=== PATIENT | male | born 1935 | race Caucasian/White ===

== ENCOUNTER 2017-08-27 14:30 | Observation (INO) | payer OTHER ==
[~2017-08-27] VITALS: Ht 170.2 cm; Wt 60.0 kg
[2017-08-27 14:43] VITALS: BP 180/90; PULSE 69; RESP 22; TEMP 97.6
[2017-08-27 14:48] VITALS: TEMP 97.4; O2SAT 99
[2017-08-27] MEDS ORDERED: COMB0.2S EACH EYE (15:01)
[2017-08-27] MEDS ORDERED: ASPI81CH6 CHEW (15:01)
[2017-08-27] MEDS ORDERED: LATA0.002 EACH EYE (15:01)
[2017-08-27] MEDS ORDERED: PRAV40TA2 PO (15:01)
[2017-08-27] MEDS ORDERED: NEUR300C PO (15:01)
[2017-08-27] MEDS ORDERED: ENAL5TAB PO (15:01)
--- NOTE | 2017-08-27 15:13 | PD ---
HPI Chief Complaint: Fall Time Seen by Provider: 14:35 Travel History International Travel<30 days: No Contact w/Intl Traveler<30days: No Traveled to known affect area: No History of Present Illness HPI 81-year-old male states he remembers going for a walk and then riding in the ambulance. The ambulance team states that he was found by neighbors of the ground. When they got to him he was unconscious. He started coming to in the ambulance. He states he has pain to his right knee from an abrasion and he has a bump to his head but denies other complaints. He states sometimes his legs get weak and he will fall so he maybe had that happen but he is not sure. He denies recurrent syncope, chest pain, shortness of breath or other concurrent complaints at this time. Patient history is limited given that he cannot recall event PFSH Past Medical History Medical History: Denies Significant Hx Diminished Hearing: No Past Surgical History Surgical History: No Previous Surgery Social History Alcohol Use: No Tobacco Use: No Substance Use: No Allergies-Medications (Allergen,Severity, Reaction): Coded Allergies: atorvastatin (Verified Adverse Reaction, Unknown, MUSCLE ACHES, 08/27/17) lovastatin (Verified Adverse Reaction, Unknown, CONSTIPATION, 08/27/17) simvastatin (Verified Adverse Reaction, Unknown, MUSCLE ACHES, 08/27/17) tamsulosin (Verified Adverse Reaction, Unknown, DIZZINESS, 08/27/17) Reported Meds & Prescriptions Reported Meds & Active Scripts Active Reported Aspirin Low Dose (Aspirin) 81 Mg Chew 81 Mg CHEW DAILY Latanoprost Opth Drops (Latanoprost) 0.005% Drops 1 Drop EACH EYE HS Refrigerate until opened. Combigan Opth Drops (Brimonidine-Timolol Opth Drops) 0.2-0.5% Soln 1 Drop EACH EYE Q12HR Neurontin (Gabapentin) 300 Mg Cap 300 Mg PO TID Pravastatin 40 Mg Tab 40 Mg PO DAILY Enalapril (Enalapril Maleate) 5 Mg Tab 5 Mg PO DAILY Review of Systems Except as stated in HPI: all other systems reviewed are Neg Physical Exam Narrative GENERAL: Well-nourished, well-developed patient. SKIN: Warm and dry. Abrasion noted to right knee HEAD: Normocephalic and supraorbital hematoma with abrasion noted on left EYES: No injection or drainage. ENT: No nasal drainage noted. NECK: Supple, trachea midline. C-collar in place CARDIOVASCULAR: Regular rate and rhythm RESPIRATORY: Breath sounds equal bilaterally at apices. No accessory muscle use. GASTROINTESTINAL: Abdomen soft, non-tender, nondistended. EXTREMITIES: No edema. No pain with palpation of main joints including right knee, neurovascularly intact, no lacerations over, compartments soft. BACK: Nontender without obvious deformity with logroll in midline across entire spine. NEUROLOGICAL: Awake and alert. Motor and sensory grossly within normal limits. Normal speech. Data Data Last Documented VS Vital Signs Date Time Temp Pulse Resp B/P (MAP) Pulse Ox O2 Delivery O2 Flow Rate FiO2 08/27/17 14:48 97.4 99 Room Air 08/27/17 14:48 2.00 08/27/17 14:43 69 22 180/90 (120) Orders Orders Electrocardiogram (08/27/17 14:42) Basic Metabolic Panel (Bmp) (08/27/17 14:42) Complete Blood Count With Diff (08/27/17 14:42) Magnesium (Mg) (08/27/17 14:42) Ckmb (Isoenzyme) Profile (08/27/17 14:42) Troponin I (08/27/17 14:42) Act Partial Throm Time (Ptt) (08/27/17 14:42) Prothrombin Time / Inr (Pt) (08/27/17 14:42) Chest, Single Ap (08/27/17 14:42) Ct Brain W/O Iv Contrast(Rout) (08/27/17 14:42) Ct Cerv Spine W/O Contrast (08/27/17 14:42) Ecg Monitoring (08/27/17 14:42) Iv Access Insert/Monitor (08/27/17 14:42) Oximetry (08/27/17 14:42) Ct Facial Bones W/O Iv Cont (08/27/17 ) CKMB (08/27/17 15:00) CKMB% (08/27/17 15:00) Alcohol (Ethanol) (08/27/17 15:58) Admit Order (Ed Use Only) (08/27/17 17:16) Labs Laboratory Tests Test 08/27/17 15:00 White Blood Count 7.1 TH/MM3 Red Blood Count 3.53 MIL/MM3 Hemoglobin 12.3 GM/DL Hematocrit 35.6 % Mean Corpuscular Volume 100.8 FL Mean Corpuscular Hemoglobin 34.7 PG Mean Corpuscular Hemoglobin Concent 34.4 % Red Cell Distribution Width 13.5 % Platelet Count 298 TH/MM3 Mean Platelet Volume 7.9 FL Neutrophils (%) (Auto) 66.9 % Lymphocytes (%) (Auto) 17.5 % Monocytes (%) (Auto) 9.1 % Eosinophils (%) (Auto) 5.6 % Basophils (%) (Auto) 0.9 % Neutrophils # (Auto) 4.8 TH/MM3 Lymphocytes # (Auto) 1.2 TH/MM3 Monocytes # (Auto) 0.6 TH/MM3 Eosinophils # (Auto) 0.4 TH/MM3 Basophils # (Auto) 0.1 TH/MM3 CBC Comment DIFF FINAL Differential Comment Prothrombin Time 10.1 SEC Prothromb Time International Ratio 1.0 RATIO Activated Partial Thromboplast Time 23.1 SEC Blood Urea Nitrogen 18 MG/DL Creatinine 1.08 MG/DL Random Glucose 99 MG/DL Calcium Level 9.1 MG/DL Magnesium Level 2.3 MG/DL Sodium Level 140 MEQ/L Potassium Level 4.1 MEQ/L Chloride Level 106 MEQ/L Carbon Dioxide Level 28.9 MEQ/L Anion Gap 5 MEQ/L Estimat Glomerular Filtration Rate 65 ML/MIN Total Creatine Kinase 122 U/L Creatine Kinase MB 2.0 NG/ML Troponin I LESS THAN 0.02 NG/ML Ethyl Alcohol Level LESS THAN 3 MG/DL MDM Medical Decision Making Medical Screen Exam Complete: Yes Emergency Medical Condition: Yes Medical Record Reviewed: Yes (past history confirmed) Interpretation(s) CBC & BMP Diagram 08/27/17 15:00 Calcium Level 9.1, Magnesium Level 2.3 Last [address] [id number]/27/171441 Signed Impressions: Service Date/Time: Sunday, August 27, 2017 15:03 - CONCLUSION: Preorbital soft tissue swelling on the left. Kentrell Duran MD Chest X-Ray [id number] Signed Impressions: Service Date/Time: Sunday, August 27, 2017 15:21 - CONCLUSION: No acute cardiopulmonary disease. Kentrell Duran MD Cervical Spine CT [id number] Signed Impressions: Service Date/Time: Bhupinder, August 27, 2017 15:03 - CONCLUSION: Slight neural foramina compromise left C3-C4 right C5-C6. Kentrell Duran MD Maxillofacial CT 08/27/17 0000 Signed Impressions: Service Date/Time: Sunday, August 27, 2017 15:03 - CONCLUSION: No definite fracture is seen for technique. Kentrell Duran MD Differential Diagnosis Intracranial bleed, fracture, syncope Narrative Course will check blood work given prolonged syncope at age and check trauma imaging and reevaluate ed workup no acute, patient agrees to observation for syncope workup Physician Communication Physician Communication dr amor agrees to admit Diagnosis Primary Impression: Syncope Qualified Codes: R55 - Syncope and collapse Admitting Information Admitting Physician Requests: Observation Diana Martinez MD Aug 27, 2017 15:13
[2017-08-27 15:23] LABS: AUTOMATED NEUTROPHIL # 4.8 TH/MM3 (1.8-7.7); BASOPHIL # 0.1 TH/MM3 (0-0.2); BASOPHIL % 0.9 % (0.0-2.0); EOSINOPHIL # 0.4 TH/MM3 (0-0.4); EOSINOPHIL % 5.6 % (0.0-4.0); HEMATOCRIT 35.6 % (39.0-51.0); HEMOGLOBIN 12.3 GM/DL (13.0-17.0); LYMPH % 17.5 % (9.0-44.0); LYMPHOCYTE # 1.2 TH/MM3 (1.0-4.8); MEAN CELL VOLUME 100.8 FL (80.0-100.0); MEAN CORPUSCULAR HEMOGLOBIN 34.7 PG (27.0-34.0); MEAN CORPUSCULAR HGB CONC 34.4 % (32.0-36.0); MEAN PLATELET VOLUME 7.9 FL (7.0-11.0); MONO % 9.1 % (0.0-8.0); MONOCYTE # 0.6 TH/MM3 (0-0.9); NEUT % 66.9 % (16.0-70.0); PLATELET COUNT 298 TH/MM3 (150-450); RED BLOOD COUNT 3.53 MIL/MM3 (4.50-5.90); RED CELL DISTRIBUTION WIDTH 13.5 % (11.6-17.2); WHITE BLOOD COUNT 7.1 TH/MM3 (4.0-11.0)
--- NOTE | 2017-08-27 15:24 | RADRPT ---
EXAM DATE/TIME: 08/27/2017 15:03 [facility] COMPARISON: No previous studies available for comparison. INDICATIONS : Trauma, left sided facial abrasions. RADIATION DOSE: 36.72 CTDIvol (mGy) MEDICAL HISTORY : None SURGICAL HISTORY : None. ENCOUNTER: Initial ACUITY: 1 day PAIN SCALE: 3/10 LOCATION: Bilateral head TECHNIQUE: Multiple contiguous axial images were obtained of the head. Using automated exposure control and adj ustment of the mA and/or kV according to patient size, radiation dose was kept as low as reasonably a chievable to obtain optimal diagnostic quality images. DICOM format image data is available electro nically for review and comparison. FINDINGS: There is no evidence for intracranial hemorrhage, mass effect, mass lesions, or edema. The visualize d bony structures appear intact. Moderate degree of brain atrophy is seen. Moderate periventricular white matter changes are seen nonspecific mostly consistent with chronic small vessel ischemic change s. There are no signs of acute infarction for technique. There is soft tissue swelling in the presep rosa maria and supraorbital area on the left side without post septal extension. There is mild mucoperiostea l thickening of the eithmoid air cells. CONCLUSION: Preorbital soft tissue swelling on the left. Kentrell Duran MD on August 27, 2017 at 15:21 Board Certified Radiologist. This report was verified electronically.
--- NOTE | 2017-08-27 15:35 | RADRPT ---
EXAM DATE/TIME: 08/27/2017 15:03 [facility] COMPARISON: No previous studies available for comparison. INDICATIONS : Trauma, left sided facial abrasions. RADIATION DOSE: 18.40 CTDIvol (mGy) MEDICAL HISTORY : None SURGICAL HISTORY : None. ENCOUNTER: Initial ACUITY: 1 day PAIN SCALE: 5/10 LOCATION: Bilateral neck TECHNIQUE: Volumetric scanning of the cervical spine was performed. Multiplanar reconstructions in the sagittal, coronal and oblique axial planes were performed. Using automated exposure control and adjustment o f the mA and/or kV according to patient size, radiation dose was kept as low as reasonably achievable to obtain optimal diagnostic quality images. DICOM format image data is available electronically f or review and comparison. FINDINGS: No definite fracture is seen for technique. C2-C3: There is no evidence for any significant compromise to the thecal sac, or the exiting nerve roots. N o appreciable thecal sac stenosis is seen. The neural foramina and lateral recess appear patent bila terally. C3-C4: Slight degenerative changes are seen within the disc space and facets. Slight bilateral lateral reces s compromise is seen due to hypertrophic changes and bulging disc. There is slight neural foramina co mpromise on the left due to asymmetrical bulging disc and hypertrophic changes. No appreciable thecal sac stenosis is seen. C4-C5: Slight degenerative changes are seen within the disc space and facets. Slight bulging disc and hypert rophic changes are seen with indentation on the thecal sac and no significant compromise to the theca l sac or the exiting nerve roots. C5-C6: Moderate degenerative changes are seen within the disc space and facets. Slight bilateral lateral rec ess compromise is seen due to hypertrophic changes and bulging disc. There is slight neural foramina compromise on the right due to asymmetrical bulging disc and hypertrophic changes. No appreciable the shayy sac stenosis is seen. C6-C7: Slight degenerative changes are seen within the disc space and facets. Slight bulging disc and hypert rophic changes are seen with indentation on the thecal sac and no significant compromise to the theca l sac or the exiting nerve roots. C7-T1: There is no evidence for any significant compromise to the thecal sac, or the exiting nerve roots. N o appreciable thecal sac stenosis is seen. The neural foramina and lateral recess appear patent bila terally. CONCLUSION: Slight neural foramina compromise left C3-C4 right C5-C6. Kentrell Duran MD on August 27, 2017 at 15:28 Board Certified Radiologist. This report was verified electronically.
[2017-08-27 15:37] LABS: PROTHROMBIN TIME - PATIENT 10.1 SEC (9.8-11.6)
--- NOTE | 2017-08-27 15:38 | RADRPT ---
EXAM DATE/TIME: 08/27/2017 15:03 [facility] COMPARISON: No previous studies available for comparison. INDICATIONS : Trauma, left sided facial abrasions. RADIATION DOSE: 57.78 CTDIvol (mGy) MEDICAL HISTORY : None SURGICAL HISTORY : None. ENCOUNTER: Initial ACUITY: 1 day PAIN SCORE: 4/10 LOCATION: Left facial TECHNIQUE: Volumetric scanning of the facial bones was performed. Using automated exposure control and adjustme nt of the mA and/or kV according to patient size, radiation dose was kept as low as reasonably achiev able to obtain optimal diagnostic quality images. DICOM format image data is available electronicall y for review and comparison. FINDINGS: No definite fractures, or dislocations are identified. No definite lytic or sclerotic lesion is seen . There is pre-septal soft tissue swelling on the left side with extension into the supraorbital area and mild mucoperiosteal thickening within multiple sinuses. CONCLUSION: No definite fracture is seen for technique. Kentrell Duran MD on August 27, 2017 at 15:34 Board Certified Radiologist. This report was verified electronically.
[2017-08-27 15:42] LABS: BICARBONATE 28.9 MEQ/L (21.0-32.0); BLOOD UREA NITROGEN 18 MG/DL (7-18); CALCIUM 9.1 MG/DL (8.5-10.1); CHLORIDE 106 MEQ/L (98-107); CREATININE 1.08 MG/DL (0.60-1.30); GLOMERULAR FILTRATION RATE 65 ML/MIN (>89); GLUCOSE,RANDOM 99 MG/DL (74-106); MAGNESIUM 2.3 MG/DL (1.5-2.5); SODIUM (NA) 140 MEQ/L (136-145)
[2017-08-27 15:45] LABS: TROPONIN I LESS THAN 0.02 NG/ML (0.02-0.05)
--- NOTE | 2017-08-27 15:58 | RADRPT ---
EXAM DATE/TIME: 08/27/2017 15:21 [facility] COMPARISON: No previous studies available for comparison. INDICATIONS : Heart Palpitations MEDICAL HISTORY : SURGICAL HISTORY : None. ENCOUNTER: Initial ACUITY: 1 day PAIN SCORE: 0/10 LOCATION: Bilateral chest FINDINGS: The lungs are clear without infiltrate, nodule, or mass. There is no appreciable pleural effusion fo r technique. Heart and mediastinum are unremarkable. There are atherosclerotic calcifications of the aorta due to chronic atherosclerotic disease. CONCLUSION: No acute cardiopulmonary disease. Kentrell Duran MD on August 27, 2017 at 15:56 Board Certified Radiologist. This report was verified electronically.
[2017-08-27] MEDS ORDERED: NALOXONE HCL 0.4 MG/ML AMP IV PUSH PRN (17:30)
[2017-08-27] MEDS ORDERED: SODIUM CHLORIDE 0.9% FLUSH 10 ML FLUSH IV FLUSH PRN (17:30)
--- NOTE | 2017-08-27 17:48 | HHI.HP ---
HPI Service [facility] Hospitalists Primary Care Physician Kassandra Dawson M.D. Admission Diagnosis syncope Diagnoses: Chief Complaint: "I Passed out" Travel History International Travel<30 Days: No Contact w/Intl Traveler <30 Da: No Traveled to Known Affected Are: No History of Present Illness This is an 80-year-old male with past medical history significant for prostate cancer status post radiation therapy, hypertension, hyperlipidemia, peripheral neuropathy who presented to [facility] after he passed out area the patient states that he usually goes out walking around his house. Today when he went out at some point he had to kneel down because he had something in his shoes and when he stood up and then he lost his balance tripped and fell and then pass out. The patient remembers waking up when the paramedics were next to him. He denies chest pain, short of breath, denies dysuria, abdominal pain, denies bowel or urine incontinence. Patient also denies fevers, chills, cough and states that prior to these events he was in his usual state of health. Review of Systems As per history of present illness, other systems reviewed by me and negative. Past Family Social History Past Medical History 1. Arthritis. 2. Difficulty with erections. 3. Glaucoma. 4. Hyperlipidemia. 5. Hypertension. 6. Peripheral neuropathy. 7. Prostate cancer in 2006, status post XRT. Past Surgical History 1. Bone marrow biopsy - 12/2012 2. Colonoscopy in 2013- positive for polyps. 3. Biopsy in 2006 - prostate Reported Medications Reported Meds & Active Scripts Active Reported Aspirin Low Dose (Aspirin) 81 Mg Chew 81 Mg CHEW DAILY Latanoprost Opth Drops (Latanoprost) 0.005% Drops 1 Drop EACH EYE HS Refrigerate until opened. Combigan Opth Drops (Brimonidine-Timolol Opth Drops) 0.2-0.5% Soln 1 Drop EACH EYE Q12HR Neurontin (Gabapentin) 300 Mg Cap 300 Mg PO TID Pravastatin 40 Mg Tab 40 Mg PO DAILY Enalapril (Enalapril Maleate) 5 Mg Tab 5 Mg PO DAILY Allergies: Coded Allergies: atorvastatin (Verified Adverse Reaction, Unknown, MUSCLE ACHES, 08/27/17) lovastatin (Verified Adverse Reaction, Unknown, CONSTIPATION, 08/27/17) simvastatin (Verified Adverse Reaction, Unknown, MUSCLE ACHES, 08/27/17) tamsulosin (Verified Adverse Reaction, Unknown, DIZZINESS, 08/27/17) Active Ordered Medications Current Medications Medications (Trade) Dose Ordered Sig/Andrew Route Start Time Stop Time Status Last Admin (NS Flush) 2 ml UNSCH PRN IV FLUSH 08/27/17 17:30 (NS Flush) 2 ml BID IV FLUSH 08/27/17 21:00 (Narcan Inj) 0.4 mg UNSCH PRN IV PUSH 08/27/17 17:30 Family History Mr. Chaidez has 2 brothers and both are and had prostate cancer. All male relatives in his family have had prostate cancer. Social History The patient is a former smoker but had smoked one pack per day for 50 years. Denies alcohol or illicit drug use. Physical Exam Vital Signs Vital Signs Date Time Temp Pulse Resp B/P (MAP) Pulse Ox O2 Delivery O2 Flow Rate FiO2 08/27/17 14:48 97.4 99 Room Air 08/27/17 14:48 97 Nasal Cannula 2.00 08/27/17 14:43 97.6 69 22 180/90 (120) Physical Exam GENERAL: This is a well-nourished, well-developed patient, in no apparent distress. SKIN: No rashes, ecchymoses or lesions. HEAD: Atraumatic. Normocephalic. No temporal or scalp tendCool and dry. Abrasion on right knee and black and blue swollen eye on left eye.erness. EYES: Pupils equal round and reactive. Extraocular motions intact. No scleral icterus. No injection or drainage. ENT: Nose without bleeding, purulent drainage or septal hematoma. Throat without erythema, tonsillar hypertrophy or exudate. Uvula midline. Airway patent. NECK: Trachea midline. No JVD or lymphadenopathy. Supple, nontender, no meningeal signs. CARDIOVASCULAR: Regular rate and rhythm without murmurs, gallops, or rubs. RESPIRATORY: Clear to auscultation. Breath sounds equal bilaterally. No wheezes , rales, or rhonchi. GASTROINTESTINAL: Abdomen soft, non-tender, nondistended. No hepato-splenomegaly , or palpable masses. No guarding. MUSCULOSKELETAL: Extremities without clubbing, cyanosis, or edema. No joint tenderness, effusion, or edema noted. No calf tenderness. Negative Homans sign bilaterally. NEUROLOGICAL: Awake and alert. Cranial nerves II through XII intact. Motor and sensory grossly within normal limits. Five out of 5 muscle strength in all muscle groups. Normal speech. Laboratory Laboratory Tests Test 08/27/17 15:00 White Blood Count 7.1 Red Blood Count 3.53 Hemoglobin 12.3 Hematocrit 35.6 Mean Corpuscular Volume 100.8 Mean Corpuscular Hemoglobin 34.7 Mean Corpuscular Hemoglobin Concent 34.4 Red Cell Distribution Width 13.5 Platelet Count 298 Mean Platelet Volume 7.9 Neutrophils (%) (Auto) 66.9 Lymphocytes (%) (Auto) 17.5 Monocytes (%) (Auto) 9.1 Eosinophils (%) (Auto) 5.6 Basophils (%) (Auto) 0.9 Neutrophils # (Auto) 4.8 Lymphocytes # (Auto) 1.2 Monocytes # (Auto) 0.6 Eosinophils # (Auto) 0.4 Basophils # (Auto) 0.1 CBC Comment DIFF FINAL Differential Comment Prothrombin Time 10.1 Prothromb Time International Ratio 1.0 Activated Partial Thromboplast Time 23.1 Blood Urea Nitrogen 18 Creatinine 1.08 Random Glucose 99 Calcium Level 9.1 Magnesium Level 2.3 Sodium Level 140 Potassium Level 4.1 Chloride Level 106 Carbon Dioxide Level 28.9 Anion Gap 5 Estimat Glomerular Filtration Rate 65 Total Creatine Kinase 122 Creatine Kinase MB 2.0 Troponin I LESS THAN 0.02 Ethyl Alcohol Level LESS THAN 3 Result Diagram: 08/27/17 1500 08/27/17 1500 Imaging Last Impressions Head CT 08/27/171441 Signed Impressions: Service Date/Time: Sunday, August 27, 2017 15:03 - CONCLUSION: Preorbital soft tissue swelling on the left. Kentrell Duran MD Chest X-Ray 08/27/171441 Signed Impressions: Service Date/Time: Sunday, August 27, 2017 15:21 - CONCLUSION: No acute cardiopulmonary disease. Kentrell Duran MD Cervical Spine CT [id number]/27/171441 Signed Impressions: Service Date/Time: Sunday, August 27, 2017 15:03 - CONCLUSION: Slight neural foramina compromise left C3-C4 right C5-C6. Kentrell Duran MD Maxillofacial CT 08/27/17 0000 Signed Impressions: Service Date/Time: Sunday, August 27, 2017 15:03 - CONCLUSION: No definite fracture is seen for technique. Kentrell Duran MD Images reviewed by me. Caprini VTE Risk Assessment Caprini VTE Risk Assessment: No/Low Risk (score <= 1) Caprini Risk Assessment Model Point Value = 1 Point Value = 2 Point Value = 3 Point Value = 5 Age 41-60 Minor surgery BMI > 25 kg/m2 Swollen legs Varicose veins or History of unexplained or recurrent spontaneous Oral contraceptives or hormone replacement Sepsis (< 1 month) Serious lung disease, including pneumonia (< 1 month) Abnormal pulmonary function Acute myocardial infarction Congestive heart failure (< 1 month) History of inflammatory bowel disease Medical patient at bed rest Age 61-74 Arthroscopic surgery Major open surgery (> 45 min) Laparoscopic surgery (> 45 min) Malignancy Confined to bed (> 72 hours) Immobilizing plaster cast Central venous access Age >= 75 History of VTE Family history of VTE Factor V Leiden Prothrombin [id number] Lupus anticoagulant Anticardiolipin antibodies Elevated serum homocysteine Heparin-induced thrombocytopenia Other congenital or acquired thrombophilia Stroke (< 1 month) Elective arthroplasty Hip, pelvis, or leg fracture Acute spinal cord injury (< 1 month) Prophylaxis Regimen Total Risk Factor Score Risk Level Prophylaxis Regimen 0-1 Low Early ambulation 2 Moderate Order ONE of the following: *Sequential Compression Device (SCD) *Heparin 5000 units SQ BID 3-4 Higher Order ONE of the following medications: *Heparin 5000 units SQ TID *Enoxaparin/Lovenox 40 mg SQ daily (WT < 150 kg, CrCl > 30 mL/min) *Enoxaparin/Lovenox 30 mg SQ daily (WT < 150 kg, CrCl > 10-29 mL/min) *Enoxaparin/Lovenox 30 mg SQ BID (WT < 150 kg, CrCl > 30 mL/min) AND/OR *Sequential Compression Device (SCD) 5 or more Highest Order ONE of the following medications: *Heparin 5000 units SQ TID (Preferred with Epidurals) *Enoxaparin/Lovenox 40 mg SQ daily (WT < 150 kg, CrCl > 30 mL/min) *Enoxaparin/Lovenox 30 mg SQ daily (WT < 150 kg, CrCl > 10-29 mL/min) *Enoxaparin/Lovenox 30 mg SQ BID (WT < 150 kg, CrCl > 30 mL/min) AND *Sequential Compression Device (SCD) Assessment and Plan Problem List: (1) Syncope ICD Code: R55 - Syncope and collapse Status: Acute Plan: EKG reviewed by me showed sinus bradycardia with occasional supraventricular premature complexes, no ST-T changes suggestive of active ischemia. Chest x-ray reviewed by me does not show any acute disease. Likely the patient lost balance and fell and the syncope is a result of head trauma. Place patient in a patient in outpatient observation. Monitor on telemetry, check 2-D echo, check carotid Dopplers, check orthostatic vital signs Trend cardiac enzymes, first set negative. consult PT (2) Uncontrolled hypertension ICD Code: I10 - Essential (primary) hypertension Status: Acute Plan: Patient has a systolic blood pressure in the 180s. Continue home antihypertensive medications. The patient on enalapril 5 mg by mouth daily. Will Rx Vasotec IV PRN (3) Hyperlipidemia ICD Code: E78.5 - Hyperlipidemia, unspecified Status: Chronic Plan: Check fasting lipid profile. Continue statin. (4) Macrocytic anemia ICD Code: D53.9 - Nutritional anemia, unspecified Plan: Check iron studies, B12 and folate. (5) Glaucoma ICD Code: H40.9 - Unspecified glaucoma Status: Chronic Plan: Seems to be stable. Continue Combigan ophthalmic drops and latanoprost ophthalmic drops. (6) Peripheral neuropathy ICD Code: G62.9 - Polyneuropathy, unspecified Status: Chronic Plan: Continue gabapentin. Assessment and Plan DVT prophylaxis: SCDs. Code Status Full code Discussed Condition With Patient Problem Qualifiers (1) Syncope: Qualified Codes: R55 - Syncope and collapse (2) Hyperlipidemia: Qualified Codes: E78.5 - Hyperlipidemia, unspecified (3) Glaucoma: Qualified Codes: H40.9 - Unspecified glaucoma (4) Peripheral neuropathy: Qualified Codes: G62.9 - Polyneuropathy, unspecified Akhil Tripp MD Aug 27, 2017 17:48
[2017-08-27 18:05] VITALS: BP 178/97; PULSE 84; RESP 18; O2SAT 97
[2017-08-27 18:07] VITALS: BP 172/79
--- NOTE | 2017-08-27 18:07 | RADRPT ---
EXAM DATE/TIME: 08/27/2017 17:33 [facility] COMPARISON: No previous studies available for comparison. INDICATIONS : Syncope. MEDICAL HISTORY : None. SURGICAL HISTORY : None. ENCOUNTER: Initial ACUITY: 1 day PAIN SCORE: 0/10 LOCATION: Bilateral neck PEAK SYSTOLIC VELOCITIES (cm/sec): ICA/CCA RATIO: Right: 1.4 Left: 1.2 ICA: Right: 91.9 Left: 64.6 CCA: Right: 65.8 Left: 55.9 ECA: Right: 58.1 Left: 58.1 VERTEBRAL: Right: 66.4 antegrade Left: 43.8 antegrade Elevated flow velocities and ICA/CCA ratios have been found to correlate with increased degrees of vessel stenosis, calculated as percentage of diameter relative to a normal segment of distal ICA/CCA FINDINGS: Antegrade flow is seen in both vertebral arteries. There is mild atherosclerotic plaquing at the orig in of both ICAs without any significant stenosis. CONCLUSION: No evidence for hemodynamically significant stenosis. Kentrell Duran MD on August 27, 2017 at 18:05 Board Certified Radiologist. This report was verified electronically.
[2017-08-27] MEDS: PRAVASTATIN SOD 40 MG TAB PO SCH (18:15)
[2017-08-27] MEDS: GABAPENTIN 300 MG CAP PO SCH (18:16)
[2017-08-27] MEDS: ENALAPRIL MALEATE 5 MG TAB PO SCH (18:16)
[2017-08-27] MEDS ORDERED: ENALAPRILAT 1.25 MG/ML VIAL IV PUSH PRN (18:30)
--- NOTE | 2017-08-27 19:34 | EKG ---
Date Performed: 08/27/2017 Time Performed: 14:56:38 PTAGE: 81 years EKG: SINUS BRADYCARDIA WITH OCCASIONAL SUPRAVENTRICULAR PREMATURE COMPLEXES BORDERLINE ECG NO PREVIOUS TRACING DOCTOR: Kevin Valdez Interpretating Date/Time 08/27/2017 19:32:39
[2017-08-27] MEDS ORDERED: LATANOPROST 0.005% OPHT SOLN 2.5 ML BTL EACH EYE SCH (21:00)
[2017-08-27] MEDS ORDERED: PT OWN (Brimonidine-Timolol Opth Drops (Combigan Opth Drops) EACH EYE SCH (21:00)
[2017-08-27] MEDS: SODIUM CHLORIDE 0.9% FLUSH 10 ML FLUSH IV FLUSH SCH (21:43)
[2017-08-27 21:56] LABS: IRON (FE) 90 MCG/DL (65-175); TOTAL IRON BINDING CAPACITY 409 MCG/DL (250-450)
--- NOTE | 2017-08-27 22:04 | EKG ---
Date Performed: 08/27/2017 Time Performed: 21:09:05 PTAGE: 81 years EKG: Sinus rhythm WITH SINUS ARRHYTHMIA NORMAL ECG Compared to prior electrocardiogram, rate has increased PREVIOUS TRACING : 08/27/2017 14.56 DOCTOR: Kevin Valdez Interpretating Date/Time 08/27/2017 22:02:25
[2017-08-27] MEDS ORDERED: ACETAMINOPHEN 325 MG TAB PO PRN (22:15)
[2017-08-27 22:21] LABS: FERRITIN 43 NG/ML (26-388); TROPONIN I 0.02 NG/ML (0.02-0.05)
[2017-08-27 22:25] LABS: FOLATE GREATER THAN 20.0 NG/ML (3.1-17.5)
[2017-08-27 23:03] VITALS: BP_SYST 116; BP_SYST 141; BP_DIAS 69; BP_DIAS 81; PULSE 64; RESP 18; TEMP 97.8; O2SAT 94
[2017-08-28] VITALS: BP 128/78; PULSE 68; RESP 18; TEMP 97.8; O2SAT 96
[2017-08-28 03:22] VITALS: BP 107/59; PULSE 69; RESP 18; TEMP 98.7; O2SAT 94
[2017-08-28 04:16] LABS: AUTOMATED NEUTROPHIL # 7.5 TH/MM3 (1.8-7.7); BASOPHIL # 0.1 TH/MM3 (0-0.2); BASOPHIL % 0.7 % (0.0-2.0); EOSINOPHIL # 0.2 TH/MM3 (0-0.4); EOSINOPHIL % 2.5 % (0.0-4.0); HEMATOCRIT 35.4 % (39.0-51.0); HEMOGLOBIN 11.9 GM/DL (13.0-17.0); LYMPH % 11.3 % (9.0-44.0); LYMPHOCYTE # 1.1 TH/MM3 (1.0-4.8); MEAN CELL VOLUME 98.8 FL (80.0-100.0); MEAN CORPUSCULAR HEMOGLOBIN 33.4 PG (27.0-34.0); MEAN CORPUSCULAR HGB CONC 33.8 % (32.0-36.0); MEAN PLATELET VOLUME 7.6 FL (7.0-11.0); MONO % 9.5 % (0.0-8.0); MONOCYTE # 0.9 TH/MM3 (0-0.9); PLATELET COUNT 298 TH/MM3 (150-450); RED BLOOD COUNT 3.58 MIL/MM3 (4.50-5.90); RED CELL DISTRIBUTION WIDTH 13.6 % (11.6-17.2); WHITE BLOOD COUNT 9.9 TH/MM3 (4.0-11.0)
[2017-08-28 04:37] LABS: BICARBONATE 28.6 MEQ/L (21.0-32.0); CREATININE 1.14 MG/DL (0.60-1.30)
[2017-08-28 04:47] LABS: CHOLESTEROL/ HDL RATIO 2.35 RATIO; HDL CHOLESTEROL 75.9 MG/DL (40.0-60.0); TROPONIN I 0.02 NG/ML (0.02-0.05)
[2017-08-28 07:28] VITALS: BP 118/76; PULSE 70; RESP 20; TEMP 98.5; O2SAT 94
[2017-08-28] MEDS ORDERED: ASPIRIN 81 MG CHEW TAB CHEW SCH (09:00)
--- NOTE | 2017-08-28 09:04 | EKG ---
Date Performed: 08/28/2017 Time Performed: 03:27:59 PTAGE: 81 years EKG: Sinus rhythm NORMAL ECG No significant change from prior electrocardiogram. PREVIOUS TRACING : 08/27/2017 21.09 DOCTOR: Kevin Valdez Interpretating Date/Time 08/28/2017 09:04:00
[2017-08-28] MEDS: ENALAPRIL MALEATE 5 MG TAB PO SCH (09:06)
[2017-08-28] MEDS: GABAPENTIN 300 MG CAP PO SCH (09:07)
[2017-08-28] MEDS: PRAVASTATIN SOD 40 MG TAB PO SCH (09:07)
[2017-08-28] MEDS: SODIUM CHLORIDE 0.9% FLUSH 10 ML FLUSH IV FLUSH SCH (09:10)
[2017-08-28 09:13] VITALS: BP_SYST 131; BP_SYST 132; BP_SYST 143; BP_DIAS 67; BP_DIAS 70; BP_DIAS 73
--- NOTE | 2017-08-28 10:05 | HHI.DS ---
Discharge Summary Admission Date Aug 27, 2017 at 17:17 Discharge Date: Aug 28, 2017 Admitting Diagnosis syncope (1) Syncope ICD Code: R55 - Syncope and collapse Diagnosis: Principal Status: Acute (2) Uncontrolled hypertension ICD Code: I10 - Essential (primary) hypertension Diagnosis: Principal Status: Acute (3) Hyperlipidemia ICD Code: E78.5 - Hyperlipidemia, unspecified Diagnosis: Secondary Status: Chronic (4) Macrocytic anemia ICD Code: D53.9 - Nutritional anemia, unspecified Diagnosis: Secondary (5) Glaucoma ICD Code: H40.9 - Unspecified glaucoma Diagnosis: Secondary Status: Chronic (6) Peripheral neuropathy ICD Code: G62.9 - Polyneuropathy, unspecified Diagnosis: Secondary Status: Chronic Procedures Mr. Chaidez is Brief History - From Admission This is an 80-year-old male with past medical history significant for prostate cancer status post radiation therapy, hypertension, hyperlipidemia, peripheral neuropathy who presented to [facility] after he passed out area the patient states that he usually goes out walking around his house. Today when he went out at some point he had to kneel down because he had something in his shoes and when he stood up and then he lost his balance tripped and fell and then pass out. The patient remembers waking up when the paramedics were next to him. He denies chest pain, short of breath, denies dysuria, abdominal pain, denies bowel or urine incontinence. Patient also denies fevers, chills, cough and states that prior to these events he was in his usual state of health. CBC/BMP: 08/28/17 0404 08/28/17 0404 Significant Findings Laboratory Tests Test 08/27/17 15:00 08/27/17 21:20 08/28/17 04:04 Red Blood Count 3.53 MIL/MM3 (4.50-5.90) 3.58 MIL/MM3 (4.50-5.90) Hemoglobin 12.3 GM/DL (13.0-17.0) 11.9 GM/DL (13.0-17.0) Hematocrit 35.6 % (39.0-51.0) 35.4 % (39.0-51.0) Mean Corpuscular Volume 100.8 FL (80.0-100.0) Mean Corpuscular Hemoglobin 34.7 PG (27.0-34.0) Monocytes (%) (Auto) 9.1 % (0.0-8.0) 9.5 % (0.0-8.0) Eosinophils (%) (Auto) 5.6 % (0.0-4.0) Activated Partial Thromboplast Time 23.1 SEC (24.3-30.1) Estimat Glomerular Filtration Rate 65 ML/MIN (>89) 61 ML/MIN (>89) Troponin I LESS THAN 0.02 NG/ML Folate GREATER THAN 20.0 NG/ML Neutrophils (%) (Auto) 76.0 % (16.0-70.0) Total Creatine Kinase 384 U/L (39-308) HDL Cholesterol 75.9 MG/DL (40.0-60.0) Hospital Course Mr. Chaidez is an 81-year-old male. He came in secondary to syncopal episode. Syncope is not a recurrent problem for him. He has had occasional episodes of presyncope. Testing shows that he has orthostatic hypotension, which she suspected. No history of heart disease. Carotid ultrasound is within normal limits. No arrhythmia on telemetry monitoring overnight. Cardiac enzymes are within normal limits. Patient is cleared for discharge today. He's on no medications which would be specifically contributory to his condition. He is advised to use caution with quick position changes. Pt Condition on Discharge: Stable Discharge Disposition: Discharge Home Discharge Time: <= 30 minutes Discharge Instructions DIET: Follow Instructions for: As Tolerated, No Restrictions Activities you can perform: Regular-No Restrictions Follow up Referrals: PCP Follow-up - 2 Weeks Continued Medications: Aspirin (Aspirin Low Dose) 81 Mg Chew 81 MG CHEW DAILY, TAB 0 Refills Brimonidine-Timolol Opth Drops (Combigan Opth Drops) 0.2-0.5% Soln 1 DROP EACH EYE Q12HR for Glaucoma, BOTTLE 0 Refills Enalapril (Enalapril) 5 Mg Tab 5 MG PO DAILY, #30 TAB 0 Refills Gabapentin (Neurontin) 300 Mg Cap 300 MG PO TID, #90 CAP 0 Refills Latanoprost Opth Drops (Latanoprost Opth Drops) 0.005% Drops 1 DROP EACH EYE HS for Glaucoma, #2.5 ML 0 Refills Refrigerate until opened. Pravastatin (Pravastatin) 40 Mg Tab 40 MG PO DAILY for Cholesterol Management, #30 TAB 0 Refills Demetris Jennings MD Aug 28, 2017 10:05
== END 2017-08-28 10:47 | disposition home or self-care (01) ==
LOC: NEPC 14:30 → NEDA 17:17 → NEPFCDU 18:50
PROVIDERS: ADMIT Hospitalist; ATTEND Hospitalist
DX: I95.1 Orthostatic hypotension (principal); I10 Essential (primary) hypertension; E78.5 Hyperlipidemia, unspecified; D53.9 Nutritional anemia, unspecified; H40.9 Unspecified glaucoma; G62.9 Polyneuropathy, unspecified; Z92.3 Personal history of irradiation; Z85.46 Personal history of malignant neoplasm of prostate; W01.0XXA Fall on same level from slipping, tripping and stumbling without subsequent striking against object, initial encounter; Z79.899 Other long term (current) drug therapy; Z87.891 Personal history of nicotine dependence; I49.1 Atrial premature depolarization; S00.81XA Abrasion of other part of head, initial encounter; I70.0 Atherosclerosis of aorta
CPT/HCPCS: 70450; 70486; 71010; 72125; 80048; 80061; 80307; 82550; 82552; 82607; 82728; 82746; 83540; 83550; 83735; 84484; 85025; 85610; 85730; 93005; 93880; 97162; 99285; G0378; G8987; G8988